=== PATIENT | male | born 1950 | race Caucasian/White ===

== ENCOUNTER → 2021-12-09 | Outpatient (CLI) | payer MEDICARE, OTHER ==
[~2021-12-09] MED LIST: ASPIRIN325 MG PO; AZITHROMYCIN250 MG PO; B-122500 MCG SL; BREO ELLIPTA 21 EACH INH; CANDESARTAN PO; HYDROCHLOROTHIA25 MG PO; IPRAT-ALBUT 0.5-3 ML INH; PLAQUENIL 200200 MG PO; PROTONIX40 MG PO; SINGULAIR10 MG PO; TOPROL XL25 MG PO; VITAMIN B-1250 MCG PO; VITAMIN D325 MCG PO; VITAMIN E100 UNI2 PO; VYTORIN 10-401 EACH PO; ZOCOR40 MG PO; ZYRTEC10 MG PO
== END ==
LOC: CT 13:00 → KOH-I 12-10 15:30
DX: G45.9 Transient cerebral ischemic attack, unspecified (principal)
CPT/HCPCS: 70450

== ENCOUNTER → 2021-12-18 | Outpatient (CLI) | payer MEDICARE, BC | LOC: HEART 5 13:46 → EXRD 14:30 | DX: I25.10 Atherosclerotic heart disease of native coronary artery without angina pectoris (principal); G45.9 Transient cerebral ischemic attack, unspecified; R55 Syncope and collapse; I27.20 Pulmonary hypertension, unspecified; I07.1 Rheumatic tricuspid insufficiency | CPT/HCPCS: 93306; 93880 ==

== ENCOUNTER → 2021-12-25 | Outpatient (CLI) | payer MEDICARE, BC | LOC: EMI 13:31 | DX: G45.9 Transient cerebral ischemic attack, unspecified (principal); M47.812 Spondylosis without myelopathy or radiculopathy, cervical region; M50.81 Other cervical disc disorders, high cervical region; I65.22 Occlusion and stenosis of left carotid artery | CPT/HCPCS: 70544; 70551; 72141 ==